=== PATIENT | female | born 1940 | race Caucasian/White ===

== ENCOUNTER 2017-09-15 15:29 | Emergency (ER) | payer MEDICARE ==
[2017-09-15] MEDS ORDERED: Sodium Chloride 0.9% 10 ML Syringe FLUSH PRN (16:27)
[2017-09-15] MEDS ORDERED: Sodium Chloride 0.9% 500 ML IV ONE ×2 (16:29→17:30)
--- NOTE | 2017-09-15 17:25 | EDM.PDOC ---
<Tessie Uriarte - Last Filed: 09/15/17 17:13> ED HPI GENERAL MEDICAL PROBLEM - General Chief Complaint: Abdominal Pain Stated Complaint: STOMACH PAIN Time Seen by Provider: 09/15/17 16:20 Source of Information: Reports: Patient, Family History Limitations: Reports: No Limitations - History of Present Illness INITIAL COMMENTS - FREE TEXT/NARRATIVE: Patient is a 77-year-old female who presents to the ED with abdominal pain. She states the pain started about 5 days ago, but has had past episodes for the last 2 months. The pain is located in the lower abdomen, radiating to bilateral sides and described as aching. The pain has an sudden onset that waxes and wanes about five times each day and lasts up to 30 minutes each time. With each painful episode, she feels diaphoretic and dizzy. Patient denies chest pain, pressure, or syncope. Patient feels the pain improves with bowel movement. She does have a history of constipation, which she does take Miralax or Milk of Magnesia with good relief. Her last bowel movement was today. She has periodic diarrhea, but otherwise does not notice a change in bowel pattern. Denies bleeding, mucous, or abnormal odor in stools. Denies history of abdominal surgeries. Her last colonoscopy was in August 2016 and reports no abnormal findings. - Related Data Allergies Allergy/AdvReac Type Severity Reaction Status Date / Time codeine Allergy Nausea Verified 09/15/17 15:39 Home Meds: Home Meds Cimetidine [Tagamet Hb] 200 mg PO DAILY 09/15/17 [History] Fexofenadine [Diane] 30 mg PO DAILY PRN 09/15/17 [History] Olmesartan [Benicar] 20 mg PO DAILY 09/15/17 [History] Omeprazole 20 mg PO DAILY PRN 09/15/17 [History] Simvastatin [Zocor] 10 mg PO BEDTIME 09/15/17 [History] amLODIPine Besylate [Amlodipine Besylate] 5 mg PO BEDTIME 09/15/17 [History] Past Medical History Cardiovascular History: Reports: High Cholesterol, Hypertension Gastrointestinal History: Reports: Diverticulosis Social & Family History - Tobacco Use Smoking Status *Q: Never Smoker - Recreational Drug Use Recreational Drug Use: No ED ROS GENERAL - Review of Systems Constitutional: Reports: Diaphoresis, Decreased Appetite. Denies: Fever, Chills , Malaise HEENT: Reports: No Symptoms Respiratory: Denies: Shortness of Breath, Cough Cardiovascular: Reports: Lightheadedness, Palpitations. Denies: Chest Pain, Dyspnea on Exertion GI/Abdominal: Reports: Abdominal Pain, Constipation, Diarrhea, Decreased Appetite. Denies: Bloody Stool, Distension, Mucous in Stool, Nausea, Vomiting ED EXAM, GI/ABD - Physical Exam Exam Limited By: No Limitations General Appearance: Alert, WD/WN, No Apparent Distress Respiratory/Chest: No Respiratory Distress, Lungs Clear, Normal Breath Sounds, No Accessory Muscle Use Cardiovascular: Regular Rate, Rhythm, No Edema, No JVD, No Murmur, No Rub GI/Abdominal Exam: Normal Bowel Sounds, Soft, No Distention, Tender. No: Distended, Guarding, Rebound Course - Vital Signs Last Recorded V/S: Last Vital Signs Temp 97.8 F 09/15/17 15:36 Pulse 81 09/15/17 15:36 Resp 16 09/15/17 15:36 BP 146/88 H 09/15/17 15:36 Pulse Ox 98 09/15/17 15:36 Orthostatic Blood Pressure [ 138/90 Standing] Orthostatic Blood Pressure [ 155/88 Sitting] Orthostatic Blood Pressure [ 141/82 Supine] - Orders/Labs/Meds Orders: Active Orders 24 hr Category Date Time Status Orthostatic Vital Signs [RC] ASDIRECTED Care 09/15/17 16:29 Active Peripheral IV Care [RC] . DIRECTED Care 09/15/17 16:29 Active C DIFFICILE BY PCR W/NAP1 [MOLEC] Stat Lab 09/15/17 16:31 Ordered CULTURE URINE [RM] Stat Lab 09/15/17 15:45 Ordered Peripheral IV Insertion Adult [OM.PC] Routine Oth 09/15/17 16:27 Ordered Labs: Laboratory Tests 09/15/17 09/15/17 09/15/17 Range/Units 15:45 16:40 16:40 WBC 8.43 (3.98-10.04) K/mm3 RBC 4.35 (3.98-5.22) M/mm3 Hgb 13.3 (11.2-15.7) gm/L Hct 41.0 (34.1-44.9) % MCV 94.3 (79.4-94.8) fl MCH 30.6 (25.6-32.2) pg MCHC 32.4 (32.2-35.5) g/dl RDW Std Deviation 45.1 (36.4-46.3) fL Plt Count 300 (182-369) K/mm3 MPV 9.4 (9.4-12.3) fl Neutrophils % (Manual) 79 H (40-60) % Band Neutrophils % 0 (0-10) % Lymphocytes % (Manual) 14 L (20-40) % Atypical Lymphs % 0 % Monocytes % (Manual) 3 (2-10) % Eosinophils % (Manual) 1 (0.7-5.8) % Basophils % (Manual) 3 H (0.1-1.2) Platelet Estimate Adequate Plt Morphology Comment Normal RBC Morph Comment Normal Sodium 136 (136-145) mEq/L Potassium 4.8 (3.5-5.1) mEq/L Chloride 102 (98-107) mEq/L Carbon Dioxide 26 (21-32) mEq/L Anion Gap 12.8 (5-15) BUN 43 H (7-18) mg/dL Creatinine 2.4 H (0.55-1.02) mg/dL Est Cr Clr Drug Dosing 15.28 mL/min Estimated GFR (MDRD) 20 (>60) mL/min BUN/Creatinine Ratio 17.9 (14-18) Glucose 91 (83-115) mg/dL Calcium 9.0 (8.5-10.1) mg/dL Total Bilirubin 0.4 (0.2-1.0) mg/dL AST 25 (15-37) U/L ALT 24 (14-59) U/L Alkaline Phosphatase 75 (46-116) U/L C-Reactive Protein < 0.2 (<1.0) mg/dL Total Protein 7.5 (6.4-8.2) g/dl Albumin 3.8 (3.4-5.0) g/dl Globulin 3.7 gm/dL Albumin/Globulin Ratio 1.0 (1-2) Urine Color Yellow (Yellow) Urine Appearance Slt cloudy H (Clear) Urine pH 6.0 (5.0-8.0) Ur Specific [place] > or = 1.030 (1.005-1.030) Urine Protein 1+ H (Negative) Urine Glucose (UA) Negative (Negative) Urine Ketones Negative (Negative) Urine Occult Blood Negative (Negative) Urine Nitrite Negative (Negative) Urine Bilirubin Negative (Negative) Urine Urobilinogen 0.2 (0.2-1.0) Ur Leukocyte Esterase 2+ H (Negative) Urine RBC 0-5 (0-5) /hpf Urine WBC 40-50 H (0-5) /hpf Ur Epithelial Cells 30-40 H (0-5) /hpf Urine Bacteria Moderate H (FEW) /hpf Urine Mucus Not seen (FEW) /hpf Meds: Medications Discontinued Medications Generic Name Dose Route Start Last Admin Trade Name Freq PRN Reason Stop Dose Admin Ceftriaxone Sodium 1 gm/ 0 gm 09/15/17 19:00 09/15/17 19:14 Lidocaine HCl 2.1 ml IM 1 inj Q24H PIERRE Administration Ceftriaxone Sodium 1 gm/ 0 gm 09/15/17 19:00 09/15/17 19:15 Lidocaine HCl 2.1 ml IM 1 inj Q24H PIERRE Administration Diatrizoate Meglum/Diatrizoate Sod 90 ml 09/15/17 17:52 09/15/17 17:53 Gastrografin 37% PO 09/15/17 17:53 90 ml ONETIME ONE Administration Sodium Chloride 500 mls @ 500 mls/hr 09/15/17 16:29 09/15/17 16:45 Normal Saline IV 09/15/17 17:28 500 mls/hr ONETIME ONE Administration Sodium Chloride 500 mls @ 500 mls/hr 09/15/17 17:30 Normal Saline IV 09/15/17 18:29 ONETIME ONE Sodium Chloride 10 ml 09/15/17 16:27 09/15/17 16:46 Saline Flush FLUSH 10 ml ASDIRECTED PRN Administration Keep Vein Open Departure - Departure Disposition: Home, Self-Care 01 Clinical Impression: Urinary tract infection - Discharge Information Instructions: Urinary Tract Infection, Adult Referrals: PCP,Not In Area [Primary Care Provider] - Forms: ED Department Discharge Additional Instructions: make sure you're drinking plenty of fluids. Follow-up with your primary care provider when you return home to ensure that the urinary tract infection has cleared. Also recheck on your creatinine to ensure that this is a normal level for you. Please return to the ER if your symptoms change or worsen. - My Orders Last 24 Hours: My Active Orders 09/15/17 15:45 CULTURE URINE [RM] Stat 09/15/17 16:27 Peripheral IV Insertion Adult [OM.PC] Routine 09/15/17 16:29 Orthostatic Vital Signs [RC] ASDIRECTED Peripheral IV Care [RC] . DIRECTED 09/15/17 16:31 C DIFFICILE BY PCR W/NAP1 [MOLEC] Stat - Assessment/Plan Last 24 Hours: My Active Orders 09/15/17 15:45 CULTURE URINE [RM] Stat 09/15/17 16:27 Peripheral IV Insertion Adult [OM.PC] Routine 09/15/17 16:29 Orthostatic Vital Signs [RC] ASDIRECTED Peripheral IV Care [RC] . DIRECTED 09/15/17 16:31 C DIFFICILE BY PCR W/NAP1 [MOLEC] Stat <SabinaulisesMari - Last Filed: 09/16/17 14:35> ED HPI GENERAL MEDICAL PROBLEM - History of Present Illness INITIAL COMMENTS - FREE TEXT/NARRATIVE: I have seen the patient and agree with the HPI as documented by VALENTINO Gracia. Additionally the patient reports to me she recently had a UTI in July and was treated with antibiotics. She denies any current pain or symptoms. Denies any fevers, nausea or vomiting. Patient reports he stools have been runnier than normal. The patient also reports a past medical history of C. diff ED ROS GENERAL - Review of Systems Review Of Systems: See Below ED EXAM, GI/ABD - Physical Exam Exam: See Below Neurological: Alert, Oriented, Normal Cognition Psychiatric: Normal Affect, Normal Mood Skin Exam: Warm, Dry, Normal Color Course - Radiology Interpretation Free Text/Narrative:: CT abdomen and pelvis Technique: Multiple axial sections were obtained from above the dome of the diaphragm inferiorly through the pubic symphysis. Intravenous contrast not utilized. Oral contrast has been given. Comparison: No prior abdominal imaging. Findings: Heart is enlarged. Small portion of the visualized lung bases shows nothing acute. Spleen appears within normal limits. Noncontrast appearance of the liver shows no discrete abnormality. Adrenal glands show no nodule. Areas of cortical scarring is seen within both kidneys. Pancreas shows no discrete abnormality. Gallbladder contains no calcified gallstones. Aorta shows atherosclerotic change which continues into the iliac vessels. No aneurysm is seen. No retroperitoneal adenopathy or mesenteric abnormalities are seen. Cecum is low-lying within the pelvis which is incidental. Appendix is not seen with certainty. No inflammatory change or free fluid is seen. Bone window settings were reviewed which shows accentuated lordosis within the spine with severe disc space narrowing at L4-L5 and L5-S1 with vacuum phenomena. Degenerative apophyseal change is seen which causes spondylolisthesis at L3-L4 and L4-L5. Impression: 1. Incidental findings. Nothing acute is appreciated on noncontrast CT study of the abdomen and pelvis. - Re-Assessments/Exams Free Text/Narrative Re-Assessment/Exam: 09/15/17 18:49 I have seen the patient and agree wit hthe HPI, ROS and PE as documented by VALENTINO Haynes. I reviewed the labs and imaging with the patient. She has been resting comfortably in the ER and has not required anythign for pain or nausea. Patient was not given IV contrast for the CT due to an elevated creatinine. She reports he kidney function is poor and she sees nephrology at home in [place]. She does not know her baseline creatinine other than it is normally high. Will treat with rocephin for UTI as she was recently on cephalexin for a UTI and her kidney function prohibits the use of macrobid and bactim. She reports she has not done well with cipro in the past. Urine has been sent for culture. Will notify if she needs additional antibiotics. Follow-up with PCP when she returns home. Encouraged to drink plenty of fluids. Discharge instructions as documented. Departure - Departure Time of Disposition: 18:57 Condition: Good
[2017-09-15] MEDS ORDERED: Diatrizoate Meglumine/Diatrizoate Sodium 37% 120 ML Bottle PO ONE (17:52)
--- NOTE | 2017-09-15 18:18 | CT ---
CT abdomen and pelvis Technique: Multiple axial sections were obtained from above the dome of the diaphragm inferiorly through the pubic symphysis. Intravenous contrast not utilized. Oral contrast has been given. Comparison: No prior abdominal imaging. Findings: Heart is enlarged. Small portion of the visualized lung bases shows nothing acute. Spleen appears within normal limits. Noncontrast appearance of the liver shows no discrete abnormality. Adrenal glands show no nodule. Areas of cortical scarring is seen within both kidneys. Pancreas shows no discrete abnormality. Gallbladder contains no calcified gallstones. Aorta shows atherosclerotic change which continues into the iliac vessels. No aneurysm is seen. No retroperitoneal adenopathy or mesenteric abnormalities are seen. Cecum is low-lying within the pelvis which is incidental. Appendix is not seen with certainty. No inflammatory change or free fluid is seen. Bone window settings were reviewed which shows accentuated lordosis within the spine with severe disc space narrowing at L4-L5 and L5-S1 with vacuum phenomena. Degenerative apophyseal change is seen which causes spondylolisthesis at L3-L4 and L4-L5. Impression: 1. Incidental findings. Nothing acute is appreciated on noncontrast CT study of the abdomen and pelvis. Diagnostic code #2
[2017-09-15] MEDS ORDERED: cefTRIAXone 1 GM, Lidocaine 1% 2.1 ML IM SCH ×4 (19:00)
== END 2017-09-15 19:12 | disposition home or self-care (01) ==
LOC: JD.ED 15:29
DX: N39.0 Urinary tract infection, site not specified (principal); I10 Essential (primary) hypertension; E78.00 Pure hypercholesterolemia, unspecified; Z79.899 Other long term (current) drug therapy; Z88.5 Allergy status to narcotic agent
CPT/HCPCS: 36415; 74176; 80053; 81001; 85007; 85027; 86140; 87086; 96360; 96361; 96372; 99284; J0696; J7040; J7050; Q9963; 99283